=== PATIENT | male | born 1950 | race Caucasian/White ===

== ENCOUNTER → 2018-09-20 | Outpatient (CLI) | payer MEDICARE, OTHER ==
[~2018-09-20] MED LIST: ALLO300T PO; AMLO-150 PO; LISI1TAB5 PO
[2018-09-20 12:00] LABS: MICROSCOPIC NOT IND
[2018-09-20 12:01] LABS: CULTURE INDICATED? NO
[2018-09-20 12:02] LABS: BASOPHILS # (AUTO) 0.04 x10^3/uL (0-0.1); BASOPHILS % (AUTO) 1 % (0-1); EOSINOPHILS # (AUTO) 0.22 x10^3/uL (0-0.4); EOSINOPHILS % (AUTO) 3 % (1-7); LYMPHOCYTES # (AUTO) 1.78 x10^3/uL (1-3.4); LYMPHOCYTES % (AUTO) 26 % (22-44); MD NO; MEAN CORPUSCULAR HEMOGLOBIN 32.6 pg (27.5-34.5); MEAN CORPUSCULAR HGB CONC 34.6 g/dL (33.2-36.2); MEAN CORPUSCULAR VOLUME 94.2 fL (81-97); MEAN PLATELET VOLUME 8.5 fL (7.4-10.4); MONOCYTES # (AUTO) 0.49 x10^3/uL (0.2-0.8); MONOCYTES % (AUTO) 7 % (2-9); NEUTROPHILS # (AUTO) 4.41 x10^3/uL (1.8-6.8); NEUTROPHILS % (AUTO) 64 % (42-75); PLATELET COUNT 284 x10^3/uL (130-400); RED BLOOD COUNT 4.48 x10^6/uL (4.38-5.82); RED CELL DISTRIBUTION WIDTH 13.7 % (9.4-14.8)
[2018-09-20 12:10] LABS: INTERNATIONAL NORMALIZED RATIO 0.93 (0.93-1.1); PROTHROMBIN TIME 9.8 Seconds (9.6-11.5)
[2018-09-20 12:22] LABS: ANION GAP 7 mmol/L (5-15); CALCIUM 9.5 mg/dL (8.5-10.1); CHLORIDE 106 mmol/L (98-107)
[2018-09-20 12:25] LABS: ALANINE AMINOTRANSFERASE 21 U/L (12-78); ALKALINE PHOSPHATASE 97 U/L (45-117); BILIRUBIN,TOTAL 0.6 mg/dL (0.2-1.0); CREATININE 0.94 mg/dL (0.7-1.3)
== END | disposition home or self-care (01) ==
LOC: STAR 10:51
PROVIDERS: ATTEND Urology
DX: Z01.818 Encounter for other preprocedural examination (principal); C61 Malignant neoplasm of prostate
CPT/HCPCS: 36415; 80053; 81003; 85025; 85610; 85730; 87086; 93005

== ENCOUNTER 2018-09-27 08:50 | Inpatient (IN) | payer MEDICARE, OTHER ==
[~2018-09-27] VITALS: Ht 177.8 cm; Wt 109.0 kg
[2018-09-27 09:12] VITALS: BP 151/94
[2018-09-27] MEDS ORDERED: LACTATED RINGERS 1,000 ML IV SCH (09:15)
[2018-09-27] MEDS ORDERED: GABAPENTIN 300 MG CAPSULE PO ONE (09:30)
[2018-09-27] MEDS ORDERED: ACETAMINOPHEN 500 MG TABLET PO ONE (09:30)
[2018-09-27] MEDS ORDERED: BUPIVACAINE/PF-EPI 0.5% 1:200K ONE (10:23)
[2018-09-27] MEDS ORDERED: THROMBIN 5,000 UNIT VIAL TP ONE (10:24)
[2018-09-27] MEDS ORDERED: FENTANYL PF 250 MCG/5ML ONE (10:45)
[2018-09-27] MEDS ORDERED: MIDAZOLAM 1 MG/ML, 2ML ONE (10:45)
[2018-09-27] MEDS ORDERED: CEFAZOLIN 1,000 MG ONE (15:04)
[2018-09-27] MEDS ORDERED: GLYCOPYRROLATE 0.2MG/1ML, 5ML ONE (15:04)
[2018-09-27] MEDS ORDERED: ROCURONIUM 10MG/ML,5ML ONE (15:04)
[2018-09-27] MEDS ORDERED: ONDANSETRON 2MG/ML, 2ML ONE (15:04)
[2018-09-27] MEDS ORDERED: PROPOFOL 10 MG/ML, 20ML ONE (15:04)
[2018-09-27] MEDS ORDERED: NEOSTIGMINE 1 MG/ML, 10ML ONE (15:04)
[2018-09-27] MEDS ORDERED: SUCCINYLCHOLINE 20 MG/ML, 10ML ONE (15:04)
[2018-09-27] MEDS ORDERED: OXYcodone 5 MG/5 ML ORAL.SOL UDC ONE (16:16)
[2018-09-27] MEDS ORDERED: FENTANYL PF 100 MCG/2ML ONE (16:16)
[2018-09-27] MEDS ORDERED: PROMETHAZINE 25 MG/ML, 1ML IV PRN (16:30)
[2018-09-27] MEDS ORDERED: OXYcodone 5 MG/5 ML ORAL.SOL UDC PO PRN (16:30)
[2018-09-27] MEDS ORDERED: HYDROmorphone 2 MG/ML, 1ML IVPush PRN (16:30)
[2018-09-27] MEDS ORDERED: METOPROLOL 1 MG/ML, 5ML IV PRN (16:30)
[2018-09-27] MEDS ORDERED: MEPERIDINE/PF 25MG/0.5ML IVPush PRN (16:30)
[2018-09-27] MEDS ORDERED: PROCHLORPERAZINE 5 MG/ML, 2ML IV PRN (16:30)
[2018-09-27] MEDS ORDERED: HALOPERIDOL 5 MG/ML IV PRN (16:30)
[2018-09-27] MEDS ORDERED: LABETALOL 5MG/ML, 20ML IV PRN (16:30)
[2018-09-27] MEDS ORDERED: hydrALAzine 20 MG/ML, 1ML IV PRN (16:30)
[2018-09-27] MEDS ORDERED: FENTANYL PF 100 MCG/2ML IV PRN (16:30)
[2018-09-27] MEDS ORDERED: HYDROcodone/APAP 5/325 TABLET PO PRN (19:00)
[2018-09-27] MEDS ORDERED: morphine SULFATE 10 MG/ML, 1ML IV PRN (19:00)
[2018-09-27] MEDS ORDERED: ONDANSETRON 2MG/ML, 2ML IV PRN (19:00)
[2018-09-27 19:49] VITALS: BP 123/69
[2018-09-27] MEDS: CEFAZOLIN PMX 1GM/50ML 50 ML IVPB SCH (22:59)
[2018-09-27] MEDS: KETOROLAC 30 MG/1 ML IV SCH (22:59)
[2018-09-27] MEDS: D5%-0.45NACL+KCL 20MEQ 1,000 ML IV SCH (22:59)
[2018-09-28 00:33] VITALS: BP 113/73
[2018-09-28 04:02] VITALS: BP 116/68
[2018-09-28] MEDS: KETOROLAC 30 MG/1 ML IV SCH ×2 (05:05→11:44)
[2018-09-28 05:51] LABS: ANION GAP 8 mmol/L (5-15); CALCIUM 8.1 mg/dL (8.5-10.1); CHLORIDE 104 mmol/L (98-107)
[2018-09-28 05:53] LABS: CREATININE 1.08 mg/dL (0.7-1.3)
[2018-09-28] MEDS ORDERED: ENOXAPARIN 40 MG/0.4 ML SQ SCH (06:00)
[2018-09-28] MEDS: CEFAZOLIN PMX 1GM/50ML 50 ML IVPB SCH (06:17)
[2018-09-28 06:58] VITALS: BP 103/58
[2018-09-28] MEDS: D5%-0.45NACL+KCL 20MEQ 1,000 ML IV SCH ×2 (07:20→11:36)
[2018-09-28] MEDS ORDERED: AMLODIPINE 5 MG TABLET PO SCH (09:00)
[2018-09-28] MEDS ORDERED: HYDROCHLOROTHIAZIDE 12.5 MG CAPSULE PO SCH (09:00)
[2018-09-28] MEDS ORDERED: LISINOPRIL 20 MG TABLET PO SCH (09:00)
[2018-09-28] MEDS ORDERED: ALLOPURINOL 300 MG TABLET PO SCH (09:00)
[2018-09-28 11:45] VITALS: BP 110/71
== END 2018-09-28 13:00 | disposition home or self-care (01) | DRG 707 ==
LOC: OUT 08:50 → 4NOR 17:24 → OUT 17:29 → DCLOUNGE 09-28 12:55
PROVIDERS: ADMIT Urology; ATTEND Urology
PROC: 0VT34ZZ Resection of Bilateral Seminal Vesicles, Percutaneous Endoscopic Approach (ICD-10-PCS; 2018-09-27)
PROC: 0TQC4ZZ Repair Bladder Neck, Percutaneous Endoscopic Approach (ICD-10-PCS; 2018-09-27)
PROC: 0TQD4ZZ Repair Urethra, Percutaneous Endoscopic Approach (ICD-10-PCS; 2018-09-27)
PROC: 8E0W4CZ Robotic Assisted Procedure of Trunk Region, Percutaneous Endoscopic Approach (ICD-10-PCS; 2018-09-27)
PROC: 0VT04ZZ Resection of Prostate, Percutaneous Endoscopic Approach (ICD-10-PCS; principal; 2018-09-27 11:00)
DX: C61 Malignant neoplasm of prostate (principal); E87.1 Hypo-osmolality and hyponatremia; I10 Essential (primary) hypertension; M10.9 Gout, unspecified; N40.0 Benign prostatic hyperplasia without lower urinary tract symptoms
CPT/HCPCS: 36415; 80048; 85014; 85018; 86850; 86900; 88305; 88309; C1729; G0378; J0690; J1650; J1885; J2250; J2405; J2704; J2710; J3010; J3490; C1760; J0330; J3480; J7120

== ENCOUNTER 2018-10-04 06:46 | Outpatient (CLI) | payer MEDICARE, OTHER | END 2018-10-04 23:59 | disposition home or self-care (01) | LOC: RAD 06:46 | PROVIDERS: ATTEND Urology | DX: Z85.46 Personal history of malignant neoplasm of prostate (principal) | CPT/HCPCS: 51600; 74430; Q9958 ==